=== PATIENT | female | born 1940 | race Caucasian/White ===

== ENCOUNTER 2024-08-16 10:32 | Emergency (ER) | payer MEDICARE, BC ==
[2024-08-16 11:48] LABS: BASOPHILS ABSOLUTE AUTO 0.03 K/uL (0.02-0.10); BASOPHILS PERCENT AUTO 0.4 % (0.0-0.5); EOSINOPHILS ABSOLUTE AUTO 0.03 K/uL (0.04-0.40); EOSINOPHILS PERCENT AUTO 0.4 % (1.0-5.0); HEMATOCRIT 41.2 % (37.0-47.0); HEMOGLOBIN 13.8 g/dL (11.5-16.5); LYMPHOCYTES ABSOLUTE AUTO 0.82 K/uL (1.50-4.00); LYMPHOCYTES PERCENT AUTO 11.2 % (20.0-40.0); MEAN CORPUSCULAR HEMOGLOBIN 31.6 pg (27.0-32.0); MEAN CORPUSCULAR HGB CONC 33.5 g/dL (31.0-35.0); MEAN CORPUSCULAR VOLUME 94 fL (76-96); MEAN PLATELET VOLUME 10.2 fL (6.0-10.0); MONOCYTES ABSOLUTE AUTO 0.32 K/uL (0.20-0.80); MONOCYTES PERCENT AUTO 4.4 % (3.0-10.0); NEUTROPHILS ABSOLUTE AUTO 6.14 K/uL (2.00-7.50); NEUTROPHILS PERCENT AUTO 83.6 % (45.0-70.0); PLATELET COUNT,PLT 221 K/uL (150-500); RED BLOOD CELL COUNT 4.37 M/uL (3.80-5.80); RED CELL DISTRIBUTION WIDTH 12.8 % (11.0-16.0); WHITE BLOOD CELL COUNT,WBC 7.3 K/uL (4.0-11.0)
[2024-08-16 12:11] LABS: PTT,PARTIAL THROMBOPLSTIN TIME 24.7 SECONDS (24.4-33.2)
[2024-08-16 12:12] LABS: A/G RATIO 0.9 (0.8-2.0); ALBUMIN 3.4 g/dL (3.4-5.0); ANION GAP 10.6 mmol/L (5.0-15.0); BILIRUBIN TOTAL 0.4 mg/dL (0.0-1.0); BUN/CREATININE RATIO 28.9 (6-25); CARBON DIOXIDE,CO2 31.6 mmol/L (21.0-32.0); CREATININE 0.83 mg/dL (0.55-1.02); EST CRCL DRUG DOSING (CG) 28.39 mL/min; POTASSIUM,K 4.2 mmol/L (3.5-5.1); PROTEIN TOTAL,TP 7.2 g/dL (6.4-8.2)
[2024-08-16 12:17] LABS: PROTHROMBIN TIME 10.8 sec (9.0-11.5)
[2024-08-16] MEDS ORDERED: HYDROmorphone 2 MG/ML Syringe ONE (17:59)
[2024-08-16 22:45] VITALS: BP 147/97; PULSE 105
== END 2024-08-16 15:06 | disposition home or self-care (01) ==
LOC: LB.ED 10:32
DX: S00.93XA Contusion of unspecified part of head, initial encounter (principal); S00.91XA Abrasion of unspecified part of head, initial encounter; Z79.82 Long term (current) use of aspirin; Z79.899 Other long term (current) drug therapy; W19.XXXA Unspecified fall, initial encounter
CPT/HCPCS: 36415; 70450; 80053; 85025; 85610; 85730; 99284

== ENCOUNTER 2024-08-16 16:49 | Inpatient (IN) | payer MEDICARE, BC ==
[2024-08-16] MEDS ORDERED: Naloxone 2 MG/2 ML Syringe IVPUSH PRN (18:01)
[2024-08-16] MEDS: HYDROmorphone 2 MG/ML Syringe IVPUSH ONE (18:06)
[2024-08-16] MEDS ORDERED: HYDROmorphone 2 MG/ML Syringe IVPUSH PRN (19:30)
[2024-08-16] MEDS ORDERED: HYDROmorphone 1 MG/ML Syringe IVPUSH PRN (19:40)
[2024-08-16] MEDS: Acetaminophen 325 MG Tab PO PRN (23:41)
[2024-08-17] MEDS: Losartan 50 MG Tab PO SCH (08:55)
[2024-08-17] MEDS: Donepezil 5 MG Tab PO SCH (09:26)
[2024-08-17] MEDS: Enoxaparin 30 MG/0.3 ML Syringe SUBCUT SCH (09:26)
[2024-08-17] MEDS: Ondansetron 4 MG/2 ML SDV IV PRN (21:37)
[2024-08-18] MEDS: HYDROmorphone 2 MG/ML Syringe IVPUSH PRN (01:30)
[2024-08-18] MEDS: HYDROmorphone 2 MG/ML Syringe ONE (01:32)
[2024-08-20] MEDS: Cyclobenzaprine 5 MG Tab PO SCH (13:18)
[2024-08-20] MEDS: Acetaminophen 325 MG Tab PO SCH (13:18)
[2024-08-21 09:26] VITALS: BP 147/88; PULSE 89
[2024-08-21] MEDS ORDERED: Acetaminophen/HYDROcodone 325-5 MG Tab PO PRN (09:50)
[2024-08-21] MEDS: Lidocaine 5% 700 MG Patch TRDERM SCH (11:43)
[2024-08-21] MEDS: Acetaminophen 325 MG Tab PO SCH (11:43)
== END 2024-08-21 11:56 | disposition swing bed (61) | DRG 544 ==
LOC: LB.ED 16:49 → LB.MS 19:10
PROVIDERS: ADMIT Physician Assistant; ATTEND Physician Assistant
DX: M48.54XA Collapsed vertebra, not elsewhere classified, thoracic region, initial encounter for fracture (principal); F03.90 Unspecified dementia, unspecified severity, without behavioral disturbance, psychotic disturbance, mood disturbance, and anxiety; F17.210 Nicotine dependence, cigarettes, uncomplicated; W18.30XA Fall on same level, unspecified, initial encounter; S00.03XA Contusion of scalp, initial encounter; Z79.82 Long term (current) use of aspirin; Z79.899 Other long term (current) drug therapy; Z87.81 Personal history of (healed) traumatic fracture; Y92.002 Bathroom of unspecified non-institutional (private) residence as the place of occurrence of the external cause; W19.XXXA Unspecified fall, initial encounter; W22.8XXA Striking against or struck by other objects, initial encounter
CPT/HCPCS: 72070; 74176; 96374; 97110-GP; 97116-GP; 97140-GP; 97161-GP; 97165-GO; 97530-GO; 97530-GP; 97535-GO; 99284-25; A9270-GY; J1171; J1650; J2405; U0002

== ENCOUNTER 2024-08-21 10:57 | Inpatient (IN) | payer MEDICARE, BC ==
[2024-08-21] MEDS ORDERED: Naloxone 2 MG/2 ML Syringe IVPUSH PRN (14:14)
[2024-08-21] MEDS ORDERED: Ondansetron 4 MG/2 ML SDV IV PRN (14:14)
[2024-08-21] MEDS: Acetaminophen 325 MG Tab PO SCH (17:47)
[2024-08-21] MEDS: Cyclobenzaprine 5 MG Tab PO SCH (19:07)
[2024-08-21] MEDS: Tuberculin, PPD 5 Units/0.1 ML 1 ML MDV IDERM ONE (21:39)
[2024-08-21] MEDS: FLU (Fluad Triv) TS24-25 (65UP)/MF59C/PF 45 MCG/0.5 ML Syringe IM ONE (21:42)
[2024-08-22] MEDS: Donepezil 5 MG Tab PO SCH (08:39)
[2024-08-22] MEDS: Losartan 50 MG Tab PO SCH (08:39)
[2024-08-22] MEDS: Lidocaine 5% 700 MG Patch TRDERM SCH (08:41)
[2024-08-22] MEDS: Enoxaparin 30 MG/0.3 ML Syringe SUBCUT SCH (08:41)
[2024-08-22] MEDS: Acetaminophen/HYDROcodone 325-5 MG Tab PO PRN (17:05)
[2024-08-26] MEDS: Enoxaparin 30 MG/0.3 ML Syringe ONE (09:15)
[2024-09-17] MEDS: Acetaminophen 325 MG Tab ONE (20:00)
[2024-09-18] MEDS: Acetaminophen 325 MG Tab PO PRN (19:40)
[2024-09-19 08:14] VITALS: BP 118/71; PULSE 88
[2024-09-19] MEDS ORDERED: Cyclobenzaprine 10 MG Tab PO PRN (09:26)
[2024-09-19] MEDS ORDERED: Acetaminophen 325 MG Tab PO PRN (09:26)
[2024-09-20] MEDS ORDERED: Calcium Carbonate 600 MG Tab PO SCH (08:00)
[2024-09-20] MEDS ORDERED: Losartan 50 MG Tab PO SCH (08:00)
[2024-09-20] MEDS ORDERED: Lidocaine 5% 700 MG Patch TOP SCH (08:00)
[2024-09-20] MEDS ORDERED: Aspirin 81 MG Tab.Chew PO SCH (08:00)
== END 2024-09-19 10:00 | DRG 552 ==
LOC: UNDOADMIN 10:57 → LB.MS 10:57
PROVIDERS: ADMIT Family Medicine; ATTEND Family Medicine
DX: M54.50 Low back pain, unspecified (principal); R53.1 Weakness; R53.81 Other malaise; H54.7 Unspecified visual loss; G47.30 Sleep apnea, unspecified; M54.9 Dorsalgia, unspecified; G89.29 Other chronic pain; G30.9 Alzheimer's disease, unspecified; F02.C0 Dementia in other diseases classified elsewhere, severe, without behavioral disturbance, psychotic disturbance, mood disturbance, and anxiety; I10 Essential (primary) hypertension; Z79.82 Long term (current) use of aspirin; Z79.899 Other long term (current) drug therapy
CPT/HCPCS: 86580; 90653; 97110-GP; 97116-GP; 97530-GO; 97530-GP; 97535-GO; 99306; 99308; 99315; A9270-GY; G0008; J1650

== ENCOUNTER 2024-11-21 17:24 | Emergency (ER) | payer MEDICARE, BC ==
[2024-11-21 18:58] VITALS: BP 122/64; PULSE 68
== END 2024-11-21 17:58 ==
LOC: LB.ED 17:24
DX: M54.50 Low back pain, unspecified (principal); M25.569 Pain in unspecified knee; Z79.82 Long term (current) use of aspirin; Z79.899 Other long term (current) drug therapy; W19.XXXA Unspecified fall, initial encounter
CPT/HCPCS: 99283

== ENCOUNTER 2025-02-27 14:31 | Inpatient (IN) | payer MEDICARE, BC ==
[2025-02-27 15:06] LABS: BASOPHILS ABSOLUTE AUTO 0.04 K/uL (0.02-0.10); BASOPHILS PERCENT AUTO 0.4 % (0.0-0.5); EOSINOPHILS ABSOLUTE AUTO 0.02 K/uL (0.04-0.40); EOSINOPHILS PERCENT AUTO 0.2 % (1.0-5.0); HEMOGLOBIN 14.3 g/dL (11.5-16.5); LYMPHOCYTES ABSOLUTE AUTO 1.85 K/uL (1.50-4.00); LYMPHOCYTES PERCENT AUTO 20.1 % (20.0-40.0); MEAN CORPUSCULAR HEMOGLOBIN 31.1 pg (27.0-32.0); MEAN CORPUSCULAR HGB CONC 31.1 g/dL (31.0-35.0); MEAN CORPUSCULAR VOLUME 100 fL (76-96); MEAN PLATELET VOLUME 11.4 fL (6.0-10.0); MONOCYTES ABSOLUTE AUTO 0.76 K/uL (0.20-0.80); MONOCYTES PERCENT AUTO 8.2 % (3.0-10.0); NEUTROPHILS ABSOLUTE AUTO 6.55 K/uL (2.00-7.50); NEUTROPHILS PERCENT AUTO 71.1 % (45.0-70.0); PLATELET COUNT,PLT 357 K/uL (150-500); RED CELL DISTRIBUTION WIDTH 14.3 % (11.0-16.0); WHITE BLOOD CELL COUNT,WBC 9.2 K/uL (4.0-11.0)
[2025-02-27] MEDS: Iopamidol 755 Mg/ML 100 ML Bottle IV SCH (15:18)
[2025-02-27] MEDS: Sodium Chloride 0.9% 50 ML SDV FLUSH ONE (15:18)
[2025-02-27] MEDS: Sodium Chloride 0.9% 1,000 ML IV ONE (15:37)
[2025-02-27 15:40] LABS: C-REACTIVE PROTEIN 11.1 mg/L (<5.0); TROPONIN I HIGH SENSITIVITY 44.3 pg/ml (<=60.4)
[2025-02-27 15:42] LABS: PTT,PARTIAL THROMBOPLSTIN TIME 21.5 SECONDS (24.4-33.2)
[2025-02-27 15:52] LABS: PROTHROMBIN TIME 10.6 sec (9.0-11.5)
[2025-02-27 16:06] LABS: A/G RATIO 0.7 (0.8-2.0); ALBUMIN 3.4 g/dL (3.4-5.0); ANION GAP 17.6 mmol/L (5.0-15.0); BILIRUBIN TOTAL 0.4 mg/dL (0.0-1.0); BUN/CREATININE RATIO 36.9 (6-25); CALCIUM 9.9 mg/dL (8.5-10.1); CARBON DIOXIDE,CO2 27.4 mmol/L (21.0-32.0); CREATININE 1.76 mg/dL (0.55-1.02); EST CRCL DRUG DOSING (CG) 14.93 mL/min
[2025-02-27] MEDS ORDERED: Sodium Chloride 0.9% 10 ML Syringe FLUSH PRN (16:08)
[2025-02-27 16:36] LABS: APPEARANCE,URINE CLEAR (CLEAR); COLOR,URINE YELLOW; PH,URINE 5.5 (5.0-8.0); PROTEIN,URINE 100 mg/dL (NEGATIVE)
[2025-02-27 16:37] LABS: BILIRUBIN,URINE NEGATIVE (NEGATIVE); GLUCOSE,URINE NEGATIVE (NEGATIVE); KETONES,URINE TRACE mg/dL (NEGATIVE); LEUKOCYTE ESTERASE,URINE NEGATIVE (NEGATIVE); NITRITE,URINE NEGATIVE (NEGATIVE); OCCULT BLOOD,URINE NEGATIVE (NEGATIVE); RBC,URINE NOT SEEN /HPF; UROBILINOGEN,URINE 0.2 E.U./dL (0.2-1.0); WBC,URINE NOT SEEN /HPF
[2025-02-27] MEDS: Lactated Ringers 1,000 ML IV SCH (16:41)
[2025-02-27] MEDS ORDERED: Bisacodyl 10 MG Supp RECTAL PRN (16:52)
[2025-02-27] MEDS: Acetaminophen 325 MG Tab PO SCH (20:09)
[2025-02-27] MEDS: Melatonin 3 MG Tab PO SCH (20:09)
[2025-02-28] MEDS: traMADol 50 MG Tab PO SCH (06:05)
[2025-02-28 07:39] LABS: BASOPHILS ABSOLUTE AUTO 0.03 K/uL (0.02-0.10); BASOPHILS PERCENT AUTO 0.4 % (0.0-0.5); EOSINOPHILS ABSOLUTE AUTO 0.06 K/uL (0.04-0.40); EOSINOPHILS PERCENT AUTO 0.8 % (1.0-5.0); LYMPHOCYTES ABSOLUTE AUTO 1.36 K/uL (1.50-4.00); LYMPHOCYTES PERCENT AUTO 18.5 % (20.0-40.0); MEAN CORPUSCULAR HEMOGLOBIN 31.3 pg (27.0-32.0); MEAN CORPUSCULAR HGB CONC 30.9 g/dL (31.0-35.0); MEAN CORPUSCULAR VOLUME 101 fL (76-96); MEAN PLATELET VOLUME 11.3 fL (6.0-10.0); MONOCYTES ABSOLUTE AUTO 0.41 K/uL (0.20-0.80); MONOCYTES PERCENT AUTO 5.6 % (3.0-10.0); NEUTROPHILS ABSOLUTE AUTO 5.49 K/uL (2.00-7.50); NEUTROPHILS PERCENT AUTO 74.7 % (45.0-70.0); RED BLOOD CELL COUNT 3.48 M/uL (3.80-5.80); RED CELL DISTRIBUTION WIDTH 14.2 % (11.0-16.0); WHITE BLOOD CELL COUNT,WBC 7.4 K/uL (4.0-11.0)
[2025-02-28 07:44] LABS: HEMATOCRIT 35.3 % (37.0-47.0); HEMOGLOBIN 10.9 g/dL (11.5-16.5)
[2025-02-28 07:45] LABS: PLATELET COUNT,PLT 276 K/uL (150-500)
[2025-02-28] MEDS ORDERED: Non-Formulary Medication 1 Each (Potassium Chloride [Potassium Chloride] 20 MEQ Tablet.Er) PO SCH (08:00)
[2025-02-28] MEDS ORDERED: Losartan 50 MG Tab PO SCH (08:00)
[2025-02-28 08:04] LABS: A/G RATIO 0.6 (0.8-2.0); ALBUMIN 2.4 g/dL (3.4-5.0); ANION GAP 11.4 mmol/L (5.0-15.0); BILIRUBIN TOTAL 0.3 mg/dL (0.0-1.0); BUN/CREATININE RATIO 47.4 (6-25); CALCIUM 8.7 mg/dL (8.5-10.1); CARBON DIOXIDE,CO2 29.3 mmol/L (21.0-32.0); CREATININE 0.97 mg/dL (0.55-1.02); EST CRCL DRUG DOSING (CG) 26.37 mL/min; POTASSIUM,K 3.7 mmol/L (3.5-5.1); PROTEIN TOTAL,TP 6.4 g/dL (6.4-8.2)
[2025-02-28] MEDS: Potassium Chloride 20 MEQ Tab.ER **OWN MED PO SCH (08:56)
[2025-02-28] MEDS: Calcium Carbonate/Vitamin D3 1500 MG-400 Units Tab PO SCH (08:56)
[2025-02-28] MEDS: Aspirin 81 MG Tab.Chew PO SCH (08:56)
[2025-02-28] MEDS: Dextrose 5% in Water 1,000 ML IV SCH (09:55)
[2025-02-28 14:40] LABS: ANION GAP 13.5 mmol/L (5.0-15.0); BUN/CREATININE RATIO 43.3 (6-25); CALCIUM 8.9 mg/dL (8.5-10.1); CARBON DIOXIDE,CO2 26.3 mmol/L (21.0-32.0); CREATININE 0.97 mg/dL (0.55-1.02); EST CRCL DRUG DOSING (CG) 26.37 mL/min; POTASSIUM,K 3.8 mmol/L (3.5-5.1)
[2025-03-01 11:16] LABS: HEMATOCRIT 32.4 % (37.0-47.0); HEMOGLOBIN 10.2 g/dL (11.5-16.5); MEAN CORPUSCULAR HEMOGLOBIN 31.1 pg (27.0-32.0); MEAN CORPUSCULAR HGB CONC 31.5 g/dL (31.0-35.0); MEAN PLATELET VOLUME 11.2 fL (6.0-10.0); RED BLOOD CELL COUNT 3.28 M/uL (3.80-5.80); RED CELL DISTRIBUTION WIDTH 13.5 % (11.0-16.0); WHITE BLOOD CELL COUNT,WBC 8.5 K/uL (4.0-11.0)
[2025-03-01 11:57] LABS: BUN/CREATININE RATIO 22.7 (6-25); CALCIUM 8.3 mg/dL (8.5-10.1); CARBON DIOXIDE,CO2 27.1 mmol/L (21.0-32.0); CREATININE 0.75 mg/dL (0.55-1.02); EST CRCL DRUG DOSING (CG) 36.62 mL/min; MAGNESIUM 1.6 mg/dL (1.8-2.4)
[2025-03-01 11:59] LABS: ANION GAP 11.1 mmol/L (5.0-15.0); POTASSIUM,K 3.2 mmol/L (3.5-5.1)
[2025-03-01] MEDS: traMADol 50 MG Tab PO PRN (13:21)
[2025-03-01] MEDS ORDERED: Potassium Chloride 20 MEQ Tab.ER PO SCH (20:00)
[2025-03-01] MEDS: Potassium Chloride 10% 20 MEQ/15 ML Soln 15 ML UD Cup PO SCH (21:10)
[2025-03-02] MEDS ORDERED: Potassium Chloride 20 MEQ Tab.ER PO SCH (08:00)
[2025-03-02 09:27] LABS: ANION GAP 9.9 mmol/L (5.0-15.0); CALCIUM 8.5 mg/dL (8.5-10.1); CARBON DIOXIDE,CO2 28.6 mmol/L (21.0-32.0); CREATININE 0.69 mg/dL (0.55-1.02); EST CRCL DRUG DOSING (CG) 39.8 mL/min; POTASSIUM,K 3.5 mmol/L (3.5-5.1)
[2025-03-02 09:45] LABS: BUN/CREATININE RATIO 18.8 (6-25)
[2025-03-02] MEDS: Potassium Chloride 10% 20 MEQ/15 ML Soln 15 ML UD Cup PO SCH (09:57)
[2025-03-02] MEDS: Losartan 50 MG Tab PO SCH (09:57)
[2025-03-02] MEDS: Magnesium Hydroxide 400 MG/5 ML Susp 30 ML Cup PO PRN (14:18)
[2025-03-02] MEDS: Donepezil 5 MG Tab PO SCH (20:06)
[2025-03-03 07:29] VITALS: BP 99/63; PULSE 87
[2025-03-03] MEDS: Potassium Chloride 10% 20 MEQ/15 ML Soln 15 ML UD Cup PO SCH (07:34)
== END 2025-03-03 10:00 | DRG 640 ==
LOC: LB.ED 14:31 → OBSVTOIN 17:00 → UNDOADMOB 17:00 → INTOOBSV 17:00 → LB.MS 17:00 → OBSVTOIN 03-01 14:17 → LB.MS 03-01 14:17 → UNDODISIN 03-03 10:00
PROVIDERS: ADMIT Physician Assistant; ATTEND Surgery
DX: E87.0 Hyperosmolality and hypernatremia (principal); G93.41 Metabolic encephalopathy; N17.9 Acute kidney failure, unspecified; E86.0 Dehydration; H54.7 Unspecified visual loss; E78.00 Pure hypercholesterolemia, unspecified; G47.30 Sleep apnea, unspecified; M54.9 Dorsalgia, unspecified; G89.29 Other chronic pain; F03.90 Unspecified dementia, unspecified severity, without behavioral disturbance, psychotic disturbance, mood disturbance, and anxiety; Z79.82 Long term (current) use of aspirin; Z79.899 Other long term (current) drug therapy
CPT/HCPCS: 36415; 70450; 70496; 70498; 80048; 80053; 81001; 82947; 83605; 83735; 83880; 84484; 85025; 85027; 85610; 85730; 86140; 93005; 93010; 96360; 96361; 99222; 99232; 99238; 99285-25; A9270-GY; C1758; G0378; J7030; J7070; J7120; Q9967